=== PATIENT | female | born 1985 | race Caucasian/White ===

== ENCOUNTER 2022-07-23 18:10 | Emergency (ER) | payer BC ==
[~2022-07-23] VITALS: Ht 160 cm; Wt 61.2 kg
[2022-07-23] MEDS ORDERED: IBUP-1957 PO (18:47)
[2022-07-23] MEDS ORDERED: CARI250T PO (18:47)
[2022-07-23] MEDS ORDERED: KETOROLAC TROMETHAMINE 30 MG INJ ONE (18:50)
[2022-07-23 18:56] VITALS: BP 143/94
[2022-07-23] MEDS ORDERED: KETOROLAC TROMETHAMINE 30 MG INJ IM ONE (19:00)
== END 2022-07-23 18:57 | disposition home or self-care (01) ==
LOC: ER 18:10
DX: M54.89 Other dorsalgia (principal); X50.0XXA Overexertion from strenuous movement or load, initial encounter; Y93.89 Activity, other specified; Y92.511 Restaurant or cafe as the place of occurrence of the external cause; Y99.0 Civilian activity done for income or pay
CPT/HCPCS: 99283; 96372; J1885; A4663